=== PATIENT | female | born 1965 | race African-American/Black ===

== ENCOUNTER 2023-09-11 04:34 | Inpatient (IN) | payer OTHER ==
[~2023-09-11] VITALS: Ht 172.7 cm; Wt 97.8 kg
[2023-09-11 05:27] LABS: ABG BASE EXCESS 1.7 (-2.0-2.0); ABG HCO3 26.6 MMOL/L (22.0-26.0); ABG O2 SATURATION 90.5 % (95.0-99.0); ABG PARTIAL PRESSURE CO2 42.8 mmHg (35.0-45.0); ABG PARTIAL PRESSURE O2 60.3 mmHg (75.0-100.0); ABG STANDARD HCO3 25.8 MMOL/L. (22.0-26.0); ABG TOTAL CO2 27.9 MMOL/L (22.0-29.0); ABG pH (ARTERIAL) 7.411 UNITS (7.350-7.450)
[2023-09-11 05:29] LABS: BASO % 0.4 % (0.0-1.0); EOS # 0.1 10^3/uL (0.0-0.5); EOS % 0.9 % (0.0-3.0); HEMATOCRIT 34.5 % (36.0-47.0); HEMOGLOBIN 11.8 g/dl (12.0-15.5); LYMPH # 2.4 10^3/uL (1.5-5.0); LYMPH % 31.9 % (24.0-44.0); MEAN CORPUSCULAR HEMOGLOBIN 25.1 pg (27.0-33.0); MEAN CORPUSCULAR HGB CONC 34.2 g/dl (32.0-36.5); MEAN CORPUSCULAR VOLUME 73.4 fl (80.0-96.0); MONO # 0.9 10^3/uL (0.0-0.8); MONO % 11.6 % (2.0-8.0); NEUTROPHILS # 4.1 10^3/uL (1.5-8.5); NEUTROPHILS % 54.7 % (36.0-66.0); PLATELET COUNT, AUTOMATED 254 10^3/uL (150-450); WHITE BLOOD COUNT 7.5 10^3/uL (4.0-10.0)
[2023-09-11 05:52] LABS: ALBUMIN 3.2 G/DL (3.2-5.2); ALKALINE PHOSPHATASE 119 U/L (46-116); ALT/SGPT 25 U/L (7.0-40); AST/SGOT 50 U/L (<34); BILIRUBIN,DIRECT 0.1 MG/DL (<0.4); BILIRUBIN,TOTAL 0.4 MG/DL (0.3-1.2); BLOOD UREA NITROGEN 9 MG/DL (9-23); CALCIUM LEVEL 8.1 MG/DL (8.5-10.1); CARBON DIOXIDE LEVEL 24 MMOL/L (20-31); CHLORIDE LEVEL 101 MMOL/L (98-107); CREATININE FOR GFR 0.62 MG/DL (0.55-1.30); GLOMERULAR FILTRATION RATE > 60.0 (>51); GLUCOSE, FASTING 392 MG/DL (60-100); POTASSIUM SERUM 4.8 MMOL/L (3.5-5.1); SODIUM LEVEL 133 MMOL/L (136-145); TOTAL PROTEIN 7.4 G/DL (5.7-8.2)
[2023-09-11] MEDS: IPRATROPIUM 0.5MG/ALBUTEROL 2.5MG INH SOL UD 3ML (DUONEB) NEB PRN (05:52)
[2023-09-11] MEDS: LevoFLOXacin IV 750 MG in IV 1 EA IV ONE (06:43)
[2023-09-11 08:00] VITALS: O2SAT 93
[2023-09-11] MEDS: IPRATROPIUM 0.02% SOLN 0.5MG 2.5ML NEB INH SCH (08:03)
[2023-09-11] MEDS: LEVALBUTEROL 1.25MG 0.5ML CONCENTRATE NEB INH SCH (08:04)
[2023-09-11] MEDS: FUROSEMIDE 40MG/4ML VIAL IV ONE (08:30)
[2023-09-11] MEDS: guaiFENesin ER TABLET 600 MG TAB PO SCH (08:45)
[2023-09-11] MEDS: methylPREDNISolone 125MG 2ML VIAL IV SCH (08:48)
[2023-09-11] MEDS ORDERED: DEXTROSE 50% 50ML SYRINGE IV PRN (09:10)
[2023-09-11] MEDS ORDERED: GLUCOSE 4GM CHEW TABLET PO PRN (09:10)
[2023-09-11] MEDS ORDERED: GLUCAGON INJ 1MG VIAL SC PRN (09:10)
[2023-09-11] MEDS ORDERED: SPIR-10 PO (09:37)
[2023-09-11] MEDS ORDERED: HYDR-3363 PO (09:37)
[2023-09-11] MEDS ORDERED: FOLI1TAB11 PO (09:37)
[2023-09-11] MEDS ORDERED: LEVOTAB10 PO (09:37)
[2023-09-11] MEDS ORDERED: OXYC-517 PO (09:37)
[2023-09-11] MEDS ORDERED: CARV25TA PO (09:37)
[2023-09-11] MEDS ORDERED: VARE1TAB2 PO (09:37)
[2023-09-11] MEDS ORDERED: TIZA2CAP PO (09:37)
[2023-09-11] MEDS ORDERED: NYST1POW9 TOP (09:37)
[2023-09-11] MEDS ORDERED: HYDR200T46 PO (09:37)
[2023-09-11] MEDS ORDERED: MONT10TA97 PO (09:37)
[2023-09-11] MEDS ORDERED: SIMV10TA21 PO (09:37)
[2023-09-11] MEDS ORDERED: PREG150C2 PO (09:37)
[2023-09-11] MEDS ORDERED: TRAZ-257 PO (09:37)
[2023-09-11] MEDS ORDERED: ESOM40CA35 PO (09:37)
[2023-09-11] MEDS ORDERED: AZAT50TA37 PO (09:37)
[2023-09-11] MEDS ORDERED: CYPR4TA PO (09:37)
[2023-09-11] MEDS ORDERED: FURO20TA2 PO (09:37)
[2023-09-11] MEDS ORDERED: IPRA6SP NARES (09:37)
[2023-09-11] MEDS ORDERED: SUMA50TA2 PO (09:37)
[2023-09-11] MEDS ORDERED: NIFE-3 PO (09:37)
[2023-09-11 10:07] VITALS: BP 144/83; TEMP 97.7; O2SAT 91
[2023-09-11] MEDS: INSULIN LISPRO (NovoLOG) PER UNIT SC ONE (10:38)
[2023-09-11] MEDS ORDERED: FERR325T3 PO (11:30)
[2023-09-11] MEDS ORDERED: ESTR62CR PV (11:30)
[2023-09-11] MEDS ORDERED: IPRA0.00 INH (11:30)
[2023-09-11] MEDS ORDERED: INSULANT SQ (11:30)
[2023-09-11] MEDS ORDERED: BUPR150T12 PO (11:30)
[2023-09-11] MEDS ORDERED: FIAS100I2 SQ (11:30)
[2023-09-11] MEDS ORDERED: BREO1INH INH (11:30)
[2023-09-11] MEDS ORDERED: FLUT1BLS8 INH (11:30)
[2023-09-11] MEDS ORDERED: ALBU8.5H INH (11:30)
[2023-09-11] MEDS: INSULIN LISPRO (NovoLOG) PER UNIT SC SCH ×3 (12:44→20:39)
[2023-09-11] MEDS ORDERED: VALA1TAB5 PO (14:25)
[2023-09-11] MEDS ORDERED: HOME MED LIST COMPLETE! XX SCH (14:30)
[2023-09-11 14:34] VITALS: BP 125/75; TEMP 97.5; O2SAT 94
[2023-09-11] MEDS: SIMVASTATIN 10 MG TAB PO SCH (15:16)
[2023-09-11] MEDS: traMADol 50 MG TAB PO ONE (16:48)
[2023-09-11] MEDS: ENOXAPARIN 40MG/0.4ML SYRINGE (J1650 PER 10MG) SC ONE (17:48)
[2023-09-11 17:59] VITALS: BP 154/94
[2023-09-11] MEDS: DICLOFENAC EPOLAMINE 1.3% PATCH TOP SCH (18:00)
[2023-09-11] MEDS: ACETAMINOPHEN 500 MG TAB PO SCH (18:05)
[2023-09-11] MEDS: FUROSEMIDE 40MG/4ML VIAL IV SCH (18:12)
[2023-09-11 20:03] VITALS: BP 140/83; TEMP 97.9; O2SAT 96
[2023-09-11] MEDS: LEVEMIR (INSULIN DETEMIR) 1 UNITS/0.01ML SC SCH (20:39)
[2023-09-11] MEDS: VARENICLINE 1MG TABLET PO SCH (20:40)
[2023-09-11] MEDS: RAMELTEON 8 MG TAB (ROZEREM) PO PRN (22:28)
[2023-09-11] MEDS: traMADol 50 MG TAB PO PRN (22:29)
[2023-09-11 23:57] VITALS: BP 132/82
[2023-09-12 06:13] LABS: BASO % 0.2 % (0.0-1.0); HEMATOCRIT 35.3 % (36.0-47.0); HEMOGLOBIN 12.2 g/dl (12.0-15.5); LYMPH # 1.1 10^3/uL (1.5-5.0); LYMPH % 16.5 % (24.0-44.0); MEAN CORPUSCULAR HGB CONC 34.6 g/dl (32.0-36.5); MEAN CORPUSCULAR VOLUME 72.3 fl (80.0-96.0); MONO # 0.1 10^3/uL (0.0-0.8); MONO % 1.8 % (2.0-8.0); NEUTROPHILS # 5.3 10^3/uL (1.5-8.5); NEUTROPHILS % 80.7 % (36.0-66.0); PLATELET COUNT, AUTOMATED 249 10^3/uL (150-450); RED BLOOD COUNT 4.88 10^6/uL (4.00-5.40); WHITE BLOOD COUNT 6.5 10^3/uL (4.0-10.0)
[2023-09-12] MEDS: LevoFLOXacin 750 MG TABLET PO SCH (06:40)
[2023-09-12 06:42] LABS: BLOOD UREA NITROGEN 18 MG/DL (9-23); CALCIUM LEVEL 8.6 MG/DL (8.5-10.1); CARBON DIOXIDE LEVEL 30 MMOL/L (20-31); CHLORIDE LEVEL 97 MMOL/L (98-107); GLOMERULAR FILTRATION RATE > 60.0 (>51); GLUCOSE, FASTING 327 MG/DL (60-100); POTASSIUM SERUM 3.9 MMOL/L (3.5-5.1); SODIUM LEVEL 134 MMOL/L (136-145)
[2023-09-12 07:12] VITALS: BP 151/95; TEMP 97.7; O2SAT 95
[2023-09-12] MEDS: FOLIC ACID 1MG TAB PO SCH (08:03)
[2023-09-12] MEDS: OMEPRAZOLE 20MG CAP PO ONE (08:03)
[2023-09-12] MEDS: MONTELUKAST 10 MG TAB PO SCH (08:04)
[2023-09-12] MEDS ORDERED: HYDROXYCHLOROQUINE 200 MG TAB PO SCH (09:00)
[2023-09-12 10:05] LABS: ERYTHROCYTE SEDIMENTATION RATE 53 mm/hr (0-30)
[2023-09-12 10:14] LABS: PROCALCITONIN 0.38 ng/ml
[2023-09-12] MEDS: LEVEMIR (INSULIN DETEMIR) 1 UNITS/0.01ML SC ONE (10:26)
[2023-09-12] MEDS: INSULIN LISPRO (NovoLOG) PER UNIT SC SCH (12:17)
[2023-09-12 14:15] VITALS: BP 116/71; TEMP 97.3; O2SAT 97
[2023-09-12] MEDS: methylPREDNISolone 40MG 1ML VIAL IV SCH (16:29)
[2023-09-12] MEDS: ENOXAPARIN 40MG/0.4ML SYRINGE (J1650 PER 10MG) SC SCH (20:26)
[2023-09-12 20:34] VITALS: BP 142/77; TEMP 97.3; O2SAT 93
[2023-09-12] MEDS: PREGABALIN 75 MG CAP(LYRICA) PO SCH (22:29)
[2023-09-12] MEDS: oxyCODONE 5MG TAB PO PRN (22:30)
[2023-09-13 06:00] VITALS: BP 134/77; TEMP 97.5; O2SAT 91
[2023-09-13] MEDS: LEVEMIR (INSULIN DETEMIR) 1 UNITS/0.01ML SC ONE (06:33)
[2023-09-13 06:37] LABS: HEMATOCRIT 34.1 % (36.0-47.0); HEMOGLOBIN 11.7 g/dl (12.0-15.5); LYMPH # 0.8 10^3/uL (1.5-5.0); LYMPH % 6.8 % (24.0-44.0); MEAN CORPUSCULAR HEMOGLOBIN 24.9 pg (27.0-33.0); MEAN CORPUSCULAR HGB CONC 34.3 g/dl (32.0-36.5); MEAN CORPUSCULAR VOLUME 72.6 fl (80.0-96.0); MONO # 0.3 10^3/uL (0.0-0.8); MONO % 2.1 % (2.0-8.0); NEUTROPHILS # 11.2 10^3/uL (1.5-8.5); NEUTROPHILS % 90.5 % (36.0-66.0); PLATELET COUNT, AUTOMATED 250 10^3/uL (150-450); WHITE BLOOD COUNT 12.4 10^3/uL (4.0-10.0)
[2023-09-13 07:00] LABS: C REACTIVE PROTEIN QUANTITATIV 0.5 MG/DL (<1.0)
[2023-09-13 07:04] LABS: BLOOD UREA NITROGEN 31 MG/DL (9-23); CALCIUM LEVEL 8.4 MG/DL (8.5-10.1); CARBON DIOXIDE LEVEL 28 MMOL/L (20-31); CHLORIDE LEVEL 101 MMOL/L (98-107); CREATININE FOR GFR 0.85 MG/DL (0.55-1.30); GLOMERULAR FILTRATION RATE > 60.0 (>51); GLUCOSE, FASTING 283 MG/DL (60-100); POTASSIUM SERUM 3.8 MMOL/L (3.5-5.1); SODIUM LEVEL 135 MMOL/L (136-145)
[2023-09-13 07:07] LABS: ERYTHROCYTE SEDIMENTATION RATE 28 mm/hr (0-30)
[2023-09-13 07:09] LABS: PROCALCITONIN 0.31 ng/ml
[2023-09-13 07:10] VITALS: O2SAT 96
[2023-09-13] MEDS: INSULIN LISPRO (NovoLOG) PER UNIT SC SCH ×2 (08:07→12:26)
[2023-09-13] MEDS: OMEPRAZOLE 20MG CAP PO SCH (08:08)
[2023-09-13] MEDS: predniSONE 20 MG TAB PO SCH (08:10)
[2023-09-13] MEDS ORDERED: LEVEMIR (INSULIN DETEMIR) 1 UNITS/0.01ML SC SCH (09:00)
[2023-09-13] MEDS ORDERED: PRED20TA PO (10:26)
[2023-09-13] MEDS ORDERED: PRED10TA2 PO (10:26)
[2023-09-13] MEDS ORDERED: LEVO1TAB40 PO (10:31)
[2023-09-13] MEDS ORDERED: CHLORASEPTIC SPRAY MT PRN (10:50)
[2023-09-13] MEDS: LEVEMIR (INSULIN DETEMIR) 1 UNITS/0.01ML SC SCH (20:36)
[2023-09-13] MEDS: CEPACOL LOZENGE PO PRN (20:37)
[2023-09-13] MEDS ORDERED: INSULIN LISPRO (NovoLOG) PER UNIT SC SCH (21:00)
[2023-09-13 21:02] VITALS: BP 109/74; TEMP 97.5; O2SAT 94
[2023-09-14 05:44] LABS: BASO % 0.1 % (0.0-1.0); EOS % 0.2 % (0.0-3.0); HEMATOCRIT 35.3 % (36.0-47.0); HEMOGLOBIN 11.6 g/dl (12.0-15.5); LYMPH # 0.8 10^3/uL (1.5-5.0); LYMPH % 7.1 % (24.0-44.0); MEAN CORPUSCULAR HEMOGLOBIN 24.8 pg (27.0-33.0); MEAN CORPUSCULAR HGB CONC 32.9 g/dl (32.0-36.5); MEAN CORPUSCULAR VOLUME 75.4 fl (80.0-96.0); MONO # 0.3 10^3/uL (0.0-0.8); MONO % 2.3 % (2.0-8.0); NEUTROPHILS # 10.4 10^3/uL (1.5-8.5); NEUTROPHILS % 89.1 % (36.0-66.0); PLATELET COUNT, AUTOMATED 247 10^3/uL (150-450); RED BLOOD COUNT 4.68 10^6/uL (4.00-5.40); WHITE BLOOD COUNT 11.7 10^3/uL (4.0-10.0)
[2023-09-14 06:00] VITALS: BP 138/85; TEMP 97.5; O2SAT 97
[2023-09-14 06:19] LABS: BLOOD UREA NITROGEN 30 MG/DL (9-23); CALCIUM LEVEL 8.2 MG/DL (8.5-10.1); CARBON DIOXIDE LEVEL 26 MMOL/L (20-31); CHLORIDE LEVEL 101 MMOL/L (98-107); GLOMERULAR FILTRATION RATE > 60.0 (>51); GLUCOSE, FASTING 436 MG/DL (60-100); POTASSIUM SERUM 3.9 MMOL/L (3.5-5.1); SODIUM LEVEL 134 MMOL/L (136-145)
[2023-09-14] MEDS: INSULIN LISPRO (NovoLOG) PER UNIT SC STA ×2 (08:07→10:51)
[2023-09-14] MEDS: LEVEMIR (INSULIN DETEMIR) 1 UNITS/0.01ML SC SCH ×2 (10:51→20:23)
[2023-09-14] MEDS ORDERED: VARIBAR PUDDING 40% w/v 230ML TUBE As Ordered ONE (12:16)
[2023-09-14] MEDS ORDERED: VARIBAR NECTAR 40% w/v 240ML SUSP BTL As Ordered ONE (12:16)
[2023-09-14] MEDS ORDERED: BARIUM SULFATE 700 MG TABLET (E-Z-DISK) As Ordered ONE (12:16)
[2023-09-14] MEDS ORDERED: E-Z-PAQUE 96% w/w SUSP 176GM BTL As Ordered ONE (12:16)
[2023-09-14 12:41] LABS: BLOOD UREA NITROGEN 30 MG/DL (9-23); CALCIUM LEVEL 8.3 MG/DL (8.5-10.1); CARBON DIOXIDE LEVEL 26 MMOL/L (20-31); CHLORIDE LEVEL 104 MMOL/L (98-107); CREATININE FOR GFR 0.78 MG/DL (0.55-1.30); GLOMERULAR FILTRATION RATE > 60.0 (>51); GLUCOSE, FASTING 335 MG/DL (60-100); POTASSIUM SERUM 3.7 MMOL/L (3.5-5.1); SODIUM LEVEL 137 MMOL/L (136-145)
[2023-09-14] MEDS: SPIRONOLACTONE 25 MG TAB PO SCH (13:09)
[2023-09-14 14:13] VITALS: BP 108/50; TEMP 97.3; O2SAT 96
[2023-09-14] MEDS: LEVEMIR (INSULIN DETEMIR) 1 UNITS/0.01ML SC ONE (16:10)
[2023-09-14] MEDS: INSULIN LISPRO (NovoLOG) PER UNIT SC SCH ×3 (17:10→20:23)
[2023-09-14 18:39] LABS: BLOOD UREA NITROGEN 27 MG/DL (9-23); CALCIUM LEVEL 8.4 MG/DL (8.5-10.1); CARBON DIOXIDE LEVEL 25 MMOL/L (20-31); CHLORIDE LEVEL 103 MMOL/L (98-107); CREATININE FOR GFR 0.73 MG/DL (0.55-1.30); GLOMERULAR FILTRATION RATE > 60.0 (>51); GLUCOSE, FASTING 345 MG/DL (60-100); POTASSIUM SERUM 3.6 MMOL/L (3.5-5.1); SODIUM LEVEL 135 MMOL/L (136-145)
[2023-09-14 19:43] VITALS: BP 132/73; TEMP 97.9; O2SAT 94
[2023-09-15 00:15] VITALS: O2SAT 97
[2023-09-15 05:02] VITALS: BP 152/89; TEMP 97.7; O2SAT 96
[2023-09-15 06:05] LABS: BASO % 0.1 % (0.0-1.0); HEMATOCRIT 34.3 % (36.0-47.0); HEMOGLOBIN 11.7 g/dl (12.0-15.5); LYMPH # 4.2 10^3/uL (1.5-5.0); LYMPH % 28.4 % (24.0-44.0); MEAN CORPUSCULAR HEMOGLOBIN 25.2 pg (27.0-33.0); MEAN CORPUSCULAR HGB CONC 34.1 g/dl (32.0-36.5); MEAN CORPUSCULAR VOLUME 73.9 fl (80.0-96.0); MONO % 6.6 % (2.0-8.0); NEUTROPHILS # 9.5 10^3/uL (1.5-8.5); NEUTROPHILS % 63.6 % (36.0-66.0); PLATELET COUNT, AUTOMATED 268 10^3/uL (150-450); RED BLOOD COUNT 4.64 10^6/uL (4.00-5.40); WHITE BLOOD COUNT 14.9 10^3/uL (4.0-10.0)
[2023-09-15 06:27] LABS: BLOOD UREA NITROGEN 24 MG/DL (9-23); CALCIUM LEVEL 8.4 MG/DL (8.5-10.1); CARBON DIOXIDE LEVEL 31 MMOL/L (20-31); CHLORIDE LEVEL 104 MMOL/L (98-107); CREATININE FOR GFR 0.73 MG/DL (0.55-1.30); GLOMERULAR FILTRATION RATE > 60.0 (>51); GLUCOSE, FASTING 60 MG/DL (60-100); SODIUM LEVEL 139 MMOL/L (136-145)
[2023-09-15 07:30] VITALS: BP 149/87; O2SAT 98
[2023-09-15] MEDS: INSULIN LISPRO (NovoLOG) PER UNIT SC SCH (07:30)
[2023-09-15] MEDS: LEVEMIR (INSULIN DETEMIR) 1 UNITS/0.01ML SC SCH (08:35)
[2023-09-15] MEDS: predniSONE 20 MG TAB PO SCH (08:52)
[2023-09-15] MEDS ORDERED: LEVEMIR (INSULIN DETEMIR) 1 UNITS/0.01ML SC SCH (09:00)
[2023-09-15] MEDS: POTASSIUM CHLORIDE 10MEQ SR TABLET PO SCH (11:03)
[2023-09-15 11:50] VITALS: BP 156/92; TEMP 97.3
[2023-09-15] MEDS: lisinopriL 5 MG TAB PO SCH (12:15)
[2023-09-15] MEDS: CARVedilol 12.5 MG TAB PO SCH (12:16)
[2023-09-15 15:15] VITALS: BP 115/66; TEMP 97.3
[2023-09-15] MEDS ORDERED: SODIUM CHLORIDE NASAL 0.65% SPRAY BTL (OCEAN) PRN (15:25)
[2023-09-15 21:21] VITALS: BP 119/67; TEMP 97.2; O2SAT 97
[2023-09-16 03:51] VITALS: O2SAT 97
[2023-09-16 06:00] VITALS: BP 126/69; TEMP 96.6; O2SAT 97
[2023-09-16 06:00] LABS: BASO % 0.1 % (0.0-1.0); EOS % 0.2 % (0.0-3.0); HEMATOCRIT 30.4 % (36.0-47.0); HEMOGLOBIN 10.7 g/dl (12.0-15.5); LYMPH # 3.8 10^3/uL (1.5-5.0); LYMPH % 30.5 % (24.0-44.0); MEAN CORPUSCULAR HEMOGLOBIN 25.6 pg (27.0-33.0); MEAN CORPUSCULAR HGB CONC 35.2 g/dl (32.0-36.5); MEAN CORPUSCULAR VOLUME 72.7 fl (80.0-96.0); MONO # 0.7 10^3/uL (0.0-0.8); MONO % 5.7 % (2.0-8.0); NEUTROPHILS # 7.7 10^3/uL (1.5-8.5); NEUTROPHILS % 61.2 % (36.0-66.0); PLATELET COUNT, AUTOMATED 240 10^3/uL (150-450); RED BLOOD COUNT 4.18 10^6/uL (4.00-5.40); WHITE BLOOD COUNT 12.5 10^3/uL (4.0-10.0)
[2023-09-16 06:32] LABS: BLOOD UREA NITROGEN 23 MG/DL (9-23); CALCIUM LEVEL 8.2 MG/DL (8.5-10.1); CARBON DIOXIDE LEVEL 29 MMOL/L (20-31); CHLORIDE LEVEL 105 MMOL/L (98-107); GLOMERULAR FILTRATION RATE > 60.0 (>51); GLUCOSE, FASTING 126 MG/DL (60-100); SODIUM LEVEL 136 MMOL/L (136-145)
[2023-09-16] MEDS: INSULIN LISPRO (NovoLOG) PER UNIT SC SCH (07:30)
[2023-09-16] MEDS: metFORMIN (GLUCOPHAGE) 500MG TAB PO SCH (08:11)
[2023-09-16 08:15] VITALS: BP 127/98
[2023-09-16] MEDS ORDERED: INSU100V3 SQ (11:13)
[2023-09-16] MEDS ORDERED: METF500T13 PO (11:13)
[2023-09-16] MEDS ORDERED: FARX1TAB3 PO (11:13)
[2023-09-16] MEDS ORDERED: LISI5TAB11 PO (13:16)
[2023-09-16] MEDS ORDERED: INSULIN LISPRO (NovoLOG) PER UNIT SC SCH (21:00)
[2023-09-16] MEDS ORDERED: LEVEMIR (INSULIN DETEMIR) 1 UNITS/0.01ML SC SCH (21:00)
== END 2023-09-16 13:30 | disposition home health service (06) | DRG 291 ==
LOC: M ED 04:34 → EDBD 04:34 → M ED INP 07:11 → M MS5PR 09:50
PROVIDERS: ADMIT General Practice; ATTEND Internal Medicine
PROC: B246ZZZ Ultrasonography of Right and Left Heart (ICD-10-PCS; principal; 2023-09-12)
DX: I11.0 Hypertensive heart disease with heart failure (principal); I50.33 Acute on chronic diastolic (congestive) heart failure; J96.01 Acute respiratory failure with hypoxia; J44.1 Chronic obstructive pulmonary disease with (acute) exacerbation; J45.901 Unspecified asthma with (acute) exacerbation; E87.20 Acidosis, unspecified; I27.20 Pulmonary hypertension, unspecified; E66.9 Obesity, unspecified; K21.9 Gastro-esophageal reflux disease without esophagitis; E11.65 Type 2 diabetes mellitus with hyperglycemia; I16.0 Hypertensive urgency; E78.00 Pure hypercholesterolemia, unspecified; G47.33 Obstructive sleep apnea (adult) (pediatric); G47.00 Insomnia, unspecified; M54.9 Dorsalgia, unspecified; G89.29 Other chronic pain; Z90.79 Acquired absence of other genital organ(s); Z87.891 Personal history of nicotine dependence; Z68.34 Body mass index [BMI] 34.0-34.9, adult; Z88.0 Allergy status to penicillin; Z88.2 Allergy status to sulfonamides; Z88.5 Allergy status to narcotic agent; Z91.048 Other nonmedicinal substance allergy status; Z79.899 Other long term (current) drug therapy; Z20.822 Contact with and (suspected) exposure to COVID-19; Z79.891 Long term (current) use of opiate analgesic; M25.551 Pain in right hip; M32.9 Systemic lupus erythematosus, unspecified; T38.0X5A Adverse effect of glucocorticoids and synthetic analogues, initial encounter

== ENCOUNTER → 2023-12-31 | Outpatient (CLI) | payer MEDICARE, OTHER ==
[~2023-12-31] MED LIST: ALBU8.5H INH; AZAT50TA37 PO; BREO1INH INH; BUPR150T12 PO; CARV25TA PO; CYPR4TA PO; ESOM40CA35 PO; ESTR62CR PV; FARX1TAB3 PO; FERR325T3 PO; FIAS100I2 SQ; FLUT1BLS8 INH; FOLI1TAB11 PO; FURO20TA2 PO; HYDR-3363 PO; HYDR200T46 PO; INSU100V3 SQ; INSULANT SQ; IPRA0.00 INH; IPRA6SP NARES; LEVO1TAB40 PO; LEVOTAB10 PO; LISI5TAB11 PO; METF500T13 PO; MONT10TA97 PO; NIFE-3 PO; NYST1POW9 TOP; OXYC-517 PO; PRED10TA2 PO; PRED20TA PO; PREG150C2 PO; SIMV10TA21 PO; SPIR-10 PO; SUMA50TA2 PO; TIZA2CAP PO; TRAZ-257 PO; VALA1TAB5 PO; VARE1TAB2 PO
[2023-12-31 12:22] LABS: BASO % 0.5 % (0.0-1.0); EOS # 0.1 10^3/uL (0.0-0.5); EOS % 1.2 % (0.0-3.0); HEMATOCRIT 37.4 % (36.0-47.0); HEMOGLOBIN 12.6 g/dl (12.0-15.5); LYMPH # 2.2 10^3/uL (1.5-5.0); LYMPH % 36.4 % (24.0-44.0); MEAN CORPUSCULAR HEMOGLOBIN 25.1 pg (27.0-33.0); MEAN CORPUSCULAR HGB CONC 33.7 g/dl (32.0-36.5); MEAN CORPUSCULAR VOLUME 74.7 fl (80.0-96.0); MONO # 0.6 10^3/uL (0.0-0.8); MONO % 9.8 % (2.0-8.0); NEUTROPHILS # 3.1 10^3/uL (1.5-8.5); NEUTROPHILS % 51.8 % (36.0-66.0); PLATELET COUNT, AUTOMATED 214 10^3/uL (150-450); RED BLOOD COUNT 5.01 10^6/uL (4.00-5.40)
[2023-12-31 12:35] LABS: HEMOGLOBIN A1c 6.9 % (4.0-6.0)
[2023-12-31 12:48] LABS: ALBUMIN 3.9 G/DL (3.2-5.2); ALKALINE PHOSPHATASE 104 U/L (46-116); ALT/SGPT 28 U/L (7.0-40); AST/SGOT 21 U/L (<34); BILIRUBIN,TOTAL 0.3 MG/DL (0.3-1.2); BLOOD UREA NITROGEN 10 MG/DL (9-23); CALCIUM LEVEL 9.7 MG/DL (8.5-10.1); CARBON DIOXIDE LEVEL 26 MMOL/L (20-31); CHLORIDE LEVEL 103 MMOL/L (98-107); CHOLESTEROL LEVEL 129 MG/DL (<200); CHOLESTEROL RISK RATIO 2.91 (<5); GLOMERULAR FILTRATION RATE > 60.0 (>51); GLUCOSE, FASTING 56 MG/DL (60-100); HDL CHOLESTEROL 44.3 MG/DL (>40); LDL CHOLESTEROL 64.9 MG/DL (<100); NON-HDL-C 84.7 MG/DL; POTASSIUM SERUM 3.3 MMOL/L (3.5-5.1); SODIUM LEVEL 138 MMOL/L (136-145); TOTAL PROTEIN 7.8 G/DL (5.7-8.2); TRIGLYCERIDES LEVEL 99 MG/DL (<150)
[2023-12-31 12:49] LABS: THYROID STIMULATING HORMONE 1.752 uIU/ML (0.55-4.78)
[2023-12-31 12:50] LABS: FREE T4 1.31 NG/DL (0.89-1.76)
== END ==
LOC: M LAB 11:17
DX: I11.0 Hypertensive heart disease with heart failure (principal); M32.19 Other organ or system involvement in systemic lupus erythematosus; J84.89 Other specified interstitial pulmonary diseases; Z79.899 Other long term (current) drug therapy

== ENCOUNTER → 2023-12-31 | Outpatient (CLI) | payer MEDICARE, OTHER ==
[2023-12-31 12:22] LABS: BASO % 0.5 % (0.0-1.0); EOS # 0.1 10^3/uL (0.0-0.5); EOS % 1.1 % (0.0-3.0); HEMATOCRIT 38.1 % (36.0-47.0); HEMOGLOBIN 12.9 g/dl (12.0-15.5); LYMPH # 2.2 10^3/uL (1.5-5.0); LYMPH % 35.3 % (24.0-44.0); MEAN CORPUSCULAR HEMOGLOBIN 25.2 pg (27.0-33.0); MEAN CORPUSCULAR HGB CONC 33.9 g/dl (32.0-36.5); MEAN CORPUSCULAR VOLUME 74.6 fl (80.0-96.0); MONO # 0.7 10^3/uL (0.0-0.8); MONO % 10.8 % (2.0-8.0); NEUTROPHILS # 3.3 10^3/uL (1.5-8.5); NEUTROPHILS % 51.8 % (36.0-66.0); PLATELET COUNT, AUTOMATED 245 10^3/uL (150-450); RED BLOOD COUNT 5.11 10^6/uL (4.00-5.40); WHITE BLOOD COUNT 6.3 10^3/uL (4.0-10.0)
[2023-12-31 12:42] LABS: ERYTHROCYTE SEDIMENTATION RATE 32 mm/hr (0-30)
[2023-12-31 12:53] LABS: ALBUMIN 3.8 G/DL (3.2-5.2); ALKALINE PHOSPHATASE 104 U/L (46-116); ALT/SGPT 28 U/L (7.0-40); AST/SGOT 21 U/L (<34); BILIRUBIN,TOTAL 0.3 MG/DL (0.3-1.2); BLOOD UREA NITROGEN 10 MG/DL (9-23); CALCIUM LEVEL 9.7 MG/DL (8.5-10.1); CARBON DIOXIDE LEVEL 26 MMOL/L (20-31); CHLORIDE LEVEL 104 MMOL/L (98-107); CREATININE FOR GFR 1.01 MG/DL (0.55-1.30); GLOMERULAR FILTRATION RATE > 60.0 (>51); GLUCOSE, FASTING 57 MG/DL (60-100); POTASSIUM SERUM 3.3 MMOL/L (3.5-5.1); SODIUM LEVEL 138 MMOL/L (136-145); TOTAL PROTEIN 7.8 G/DL (5.7-8.2)
== END ==
LOC: M LAB 10:53
PROVIDERS: ATTEND Internal Medicine Rheumatology
DX: M32.19 Other organ or system involvement in systemic lupus erythematosus (principal); J84.89 Other specified interstitial pulmonary diseases; Z79.899 Other long term (current) drug therapy

== ENCOUNTER 2024-02-16 14:12 | Emergency (ER) | payer OTHER ==
[~2024-02-16] VITALS: Ht 152.4 cm; Wt 102.3 kg
[2024-02-16 16:22] LABS: BASO % 0.5 % (0.0-1.0); EOS % 0.5 % (0.0-3.0); HEMATOCRIT 37.4 % (36.0-47.0); HEMOGLOBIN 12.5 g/dl (12.0-15.5); LYMPH % 34.3 % (24.0-44.0); MEAN CORPUSCULAR HEMOGLOBIN 24.4 pg (27.0-33.0); MEAN CORPUSCULAR HGB CONC 33.4 g/dl (32.0-36.5); MEAN CORPUSCULAR VOLUME 72.9 fl (80.0-96.0); MONO # 0.6 10^3/uL (0.0-0.8); MONO % 10.9 % (2.0-8.0); NEUTROPHILS # 3.1 10^3/uL (1.5-8.5); NEUTROPHILS % 53.4 % (36.0-66.0); PLATELET COUNT, AUTOMATED 225 10^3/uL (150-450); RED BLOOD COUNT 5.13 10^6/uL (4.00-5.40); WHITE BLOOD COUNT 5.7 10^3/uL (4.0-10.0)
[2024-02-16 16:42] LABS: CK-MB VALUE MASS < 1.0 NG/ML (<3.6)
[2024-02-16 16:44] LABS: BLOOD UREA NITROGEN 12 MG/DL (9-23); CARBON DIOXIDE LEVEL 28 MMOL/L (20-31); CHLORIDE LEVEL 100 MMOL/L (98-107); CPK CREATINE PHOSPHOKINASE 122 U/L (34-145); CREATININE FOR GFR 1.26 MG/DL (0.55-1.30); GLOMERULAR FILTRATION RATE 56.1 (>51); GLUCOSE, FASTING 85 MG/DL (60-100); MB/CK RELATIVE INDEX 0.81 (< OR =4); POTASSIUM SERUM 3.2 MMOL/L (3.5-5.1); SODIUM LEVEL 135 MMOL/L (136-145)
[2024-02-16 16:46] LABS: THYROID STIMULATING HORMONE 1.093 uIU/ML (0.55-4.78)
[2024-02-16] MEDS ORDERED: ISOVUE-370 76% 100ML VIAL As Ordered ONE (18:20)
[2024-02-16 18:59] LABS: LIPASE 33 U/L (12-53)
[2024-02-16 19:01] LABS: ALKALINE PHOSPHATASE 96 U/L (46-116); ALT/SGPT 21 U/L (7.0-40); AST/SGOT 16 U/L (<34); BILIRUBIN,DIRECT 0.2 MG/DL (<0.4); BILIRUBIN,TOTAL 0.4 MG/DL (0.3-1.2); MAGNESIUM LEVEL 2.1 MG/DL (1.8-2.4); TOTAL PROTEIN 7.8 G/DL (5.7-8.2)
[2024-02-16 19:18] LABS: INR 1.2; PARTIAL THROMBOPLASTIN TIME 28.9 SECONDS (24.8-34.2); PROTHROMBIN TIME 14.8 SECONDS (12.5-14.5)
[2024-02-16 19:37] LABS: CK-MB VALUE MASS < 1.0 NG/ML (<3.6); CPK CREATINE PHOSPHOKINASE 161 U/L (34-145); MB/CK RELATIVE INDEX 0.62 (< OR =4)
[2024-02-16] MEDS ORDERED: DEPA1TAB3 PO (19:37)
[2024-02-16 19:49] VITALS: BP 138/87; TEMP 97.1; O2SAT 97
[2024-02-16 20:28] LABS: AMPHETAMINES LEVEL URINE NEGATIVE (NEGATIVE); BARBITURATES URINE NEGATIVE (NEGATIVE); BENZODIAZEPINES URINE NEGATIVE (NEGATIVE); COCAINE METABOLITE URINE NEGATIVE (NEGATIVE); METHADONE URINE NEGATIVE (NEGATIVE); OPIATES URINE NEGATIVE (NEGATIVE)
[2024-02-16 20:29] LABS: CANNABINOIDS URINE NEGATIVE (NEGATIVE); PHENCYCLIDINE URINE NEGATIVE (NEGATIVE)
== END 2024-02-16 19:52 | disposition home or self-care (01) ==
LOC: M ED 14:12
DX: R55 Syncope and collapse (principal); R56.9 Unspecified convulsions; R94.31 Abnormal electrocardiogram [ECG] [EKG]; E11.9 Type 2 diabetes mellitus without complications; J44.9 Chronic obstructive pulmonary disease, unspecified; J45.909 Unspecified asthma, uncomplicated; I10 Essential (primary) hypertension; Z87.891 Personal history of nicotine dependence; Z88.0 Allergy status to penicillin; Z88.2 Allergy status to sulfonamides; Z88.5 Allergy status to narcotic agent; Z79.51 Long term (current) use of inhaled steroids; Z79.4 Long term (current) use of insulin; Z79.84 Long term (current) use of oral hypoglycemic drugs; Z79.52 Long term (current) use of systemic steroids; Z79.899 Other long term (current) drug therapy
CPT/HCPCS: 36415; 70450; 71046; 71275; 74174; 80048; 80076; 80307; 81001; 82550; 82553; 83690; 83735; 83880; 84443; 84484; 85025; 85610; 85730; 87486; 87581; 87633; 87798; 93005; 99284; Q9967

== ENCOUNTER → 2024-09-13 | Outpatient (CLI) | payer OTHER ==
[~2024-09-13] MED LIST changes: -CYPR4TA PO; +CYPR4TAB36 PO; +DEPA1TAB3 PO; +NYST1POW3 TOP; -NYST1POW9 TOP
== END ==
LOC: M SOG 10:19
PROVIDERS: ATTEND Physician Assistant
DX: M25.552 Pain in left hip (principal); Z96.642 Presence of left artificial hip joint

== ENCOUNTER → 2025-02-18 | Outpatient (CLI) | payer MEDICARE, MEDICAID | LOC: M RAD 08:13 | PROVIDERS: ATTEND Family Medicine | DX: M54.12 Radiculopathy, cervical region (principal) ==

== ENCOUNTER 2025-03-19 16:57 | Emergency (ER) | payer MEDICARE, MEDICAID ==
[~2025-03-19] VITALS: Ht 149.9 cm; Wt 83.6 kg
[~2025-03-19 16:57] MED LIST changes: +FAMO1TAB11 PO; +FARX1TAB5 PO; +FURO40TA2 PO; +INSUH10VL SQ; +LANS30CA93 PO; +LORA-1041 PO; +METF-839 PO; +METH-1165 PO; +OXYC10TA12 PO; +STIO1AER; +SUMA100T2 PO; +TIRZ10PE; +TOPI-21 PO; +VITA1CAP25 PO; +YUPE175S; +ZOLP5TAB PO
[2025-03-19 17:06] VITALS: BP 123/83; TEMP 98.3; O2SAT 100
== END 2025-03-19 19:22 | disposition left against medical advice (07) ==
LOC: M ED 16:57 → EDBD 16:57 → M ED 19:22
DX: Z53.21 Procedure and treatment not carried out due to patient leaving prior to being seen by health care provider (principal)

== ENCOUNTER 2025-03-22 10:26 | Day surgery (SDC) | payer MEDICARE, MEDICAID ==
[~2025-03-22] VITALS: Ht 149.9 cm; Wt 83.5 kg
[2025-03-22] MEDS ORDERED: IPRATROPIUM 0.5 MG/ALBUTEROL 2.5 MG INH SOL UD 3 ML NEB STA (10:51)
[2025-03-22] MEDS ORDERED: LIDOCAINE 2% 100 MG/5 ML SDV (FOR ANES.) As Ordered ONE (11:18)
[2025-03-22 11:50] VITALS: TEMP 97.1
[2025-03-22 12:10] VITALS: BP 135/85; O2SAT 95
== END 2025-03-22 12:16 | disposition home or self-care (01) ==
LOC: M OPP 10:26
PROVIDERS: ATTEND Internal Medicine Gastroenterology
DX: K64.0 First degree hemorrhoids (principal); K55.20 Angiodysplasia of colon without hemorrhage; K57.30 Diverticulosis of large intestine without perforation or abscess without bleeding; Z86.0100 Personal history of colon polyps, unspecified; G47.30 Sleep apnea, unspecified; Z88.0 Allergy status to penicillin; Z88.1 Allergy status to other antibiotic agents; Z88.2 Allergy status to sulfonamides; Z88.5 Allergy status to narcotic agent; Z88.8 Allergy status to other drugs, medicaments and biological substances; Z91.040 Latex allergy status; Z91.048 Other nonmedicinal substance allergy status; J44.9 Chronic obstructive pulmonary disease, unspecified; F17.210 Nicotine dependence, cigarettes, uncomplicated

== ENCOUNTER 2025-03-28 10:11 | Inpatient (IN) | payer MEDICARE, MEDICAID ==
[~2025-03-28] VITALS: Ht 149.9 cm; Wt 86.6 kg
[~2025-03-28 10:11] MED LIST changes: -STIO1AER; +STIO1AER INH; -TIRZ10PE; +TIRZ10PE INJ; -YUPE175S; +YUPE175S NEB
[2025-03-28 11:16] LABS: BASO # 0.0 10^3/uL (0.0-0.2); BASO % 0.2 % (0.0-1.0); EOS # 0.0 10^3/uL (0.0-0.5); EOS % 0.1 % (0.0-3.0); LYMPH # 0.7 10^3/uL (1.5-5.0); LYMPH % 5.4 % (24.0-44.0); MONO # 0.7 10^3/uL (0.0-0.8); MONO % 5.0 % (2.0-8.0); NEUTROPHILS # 11.8 10^3/uL (1.5-8.5); NEUTROPHILS % 88.8 % (36.0-66.0); PLATELET COUNT, AUTOMATED 254 10^3/uL (150-450)
[2025-03-28] MEDS: ACETAMINOPHEN 500 MG TAB PO ONE (11:26)
[2025-03-28 11:29] LABS: ALT/SGPT 13.0 U/L (7.0-40); AST/SGOT 22.0 U/L (<34); CALCIUM LEVEL 9.6 MG/DL (8.3-10.6); CARBON DIOXIDE LEVEL 23.0 MMOL/L (20-31); CHLORIDE LEVEL 101.0 MMOL/L (98-107); CREATININE FOR GFR 0.87 MG/DL (0.55-1.30); GLOMERULAR FILTRATION RATE 75.8 (>45); POTASSIUM SERUM 3.8 MMOL/L (3.5-5.1); SODIUM LEVEL 137.0 MMOL/L (136-145)
[2025-03-28] MEDS: IPRATROPIUM 0.5 MG/ALBUTEROL 2.5 MG INH SOL UD 3 ML NEB PRN (11:49)
[2025-03-28 11:52] VITALS: O2SAT 99
[2025-03-28] MEDS: LevoFLOXacin IV 750 MG in IV 1 EA IV ONE (12:51)
[2025-03-28] MEDS ORDERED: FIAS100I2 SUBQ (15:16)
[2025-03-28] MEDS ORDERED: INSULANT SUBQ (15:16)
[2025-03-28] MEDS ORDERED: TRIA0.022 TOP (15:16)
[2025-03-28] MEDS ORDERED: ONDA-284 PO (15:16)
[2025-03-28] MEDS ORDERED: PRED5TA PO (15:16)
[2025-03-28] MEDS ORDERED: HOME MED LIST COMPLETE! XX SCH (15:20)
[2025-03-28] MEDS ORDERED: MOM 30 ML SUSPENSION UDC PO PRN (16:25)
[2025-03-28] MEDS ORDERED: ACETAMINOPHEN 325 MG TAB PO PRN (16:25)
[2025-03-28] MEDS ORDERED: DEXTROSE 50% 50 ML SYRINGE IV PRN (16:45)
[2025-03-28] MEDS ORDERED: GLUCOSE 4 GM CHEW PO PRN (16:45)
[2025-03-28] MEDS ORDERED: GLUCAGON INJ 1 MG VIAL SC PRN (16:45)
[2025-03-28] MEDS ORDERED: DOXYCYCLINE HYCLATE 100 MG in DEXTROSE 5% (D5W) MINI-BAG PLU 100 ML IV SCH (16:45)
[2025-03-28] MEDS ORDERED: PILL CUTTER 1 EACH XX PRN (17:05)
[2025-03-28 17:22] VITALS: BP 152/86; TEMP 98.4; O2SAT 100
[2025-03-28] MEDS: INSULIN LISPRO (NovoLOG) PER UNIT SC SCH ×2 (18:02→21:16)
[2025-03-28] MEDS: BUDESONIDE 0.5 MG/2 ML INHALATION SUSPENSION NEB SCH (19:24)
[2025-03-28] MEDS: ALBUTEROL SULFATE 2.5 MG/0.5 ML INH CONCENTRATE NEB SOLN NEB SCH (19:24)
[2025-03-28] MEDS: GLYCOPYRROLATE INJ 0.2 MG/ML 2 ML VIAL NEB SCH (19:25)
[2025-03-28 20:22] VITALS: BP 152/88; TEMP 99.4; O2SAT 100
[2025-03-28] MEDS: INSULIN GLARGINE-YFGN 1 UNITS/0.01 ML SC SCH (21:16)
[2025-03-28] MEDS: buPROPion **XL** 150 MG TABLET PO SCH (21:18)
[2025-03-28] MEDS: DOCUSATE SODIUM 100 MG CAPSULE PO SCH (21:18)
[2025-03-28] MEDS: DOXYCYCLINE HYCLATE 100 MG TABLET PO SCH (21:18)
[2025-03-28] MEDS: cefTRIAXone SOD 2 GM in DEXTROSE 5% (D5W) ADV/MINI-BAG 50 ML IV SCH (21:18)
[2025-03-28] MEDS: FAMOTIDINE 20 MG TAB PO SCH (21:18)
[2025-03-28] MEDS: traZODone 100 MG TAB PO SCH (21:19)
[2025-03-28] MEDS: SIMVASTATIN 10 MG TAB PO SCH (21:19)
[2025-03-28] MEDS: HYDROXYCHLOROQUINE 200 MG TAB PO SCH (23:53)
[2025-03-29 03:55] VITALS: BP 140/74; TEMP 97.9; O2SAT 100
[2025-03-29 06:37] LABS: BASO # 0.0 10^3/uL (0.0-0.2); BASO % 0.1 % (0.0-1.0); EOS # 0.0 10^3/uL (0.0-0.5); EOS % 0.0 % (0.0-3.0); LYMPH # 0.7 10^3/uL (1.5-5.0); LYMPH % 7.3 % (24.0-44.0); MONO # 0.2 10^3/uL (0.0-0.8); MONO % 2.2 % (2.0-8.0); NEUTROPHILS # 8.0 10^3/uL (1.5-8.5); NEUTROPHILS % 90.1 % (36.0-66.0); PLATELET COUNT, AUTOMATED 236 10^3/uL (150-450)
[2025-03-29 07:39] LABS: CALCIUM LEVEL 9.6 MG/DL (8.3-10.6); CARBON DIOXIDE LEVEL 22.0 MMOL/L (20-31); CHLORIDE LEVEL 106.0 MMOL/L (98-107); CREATININE FOR GFR 0.86 MG/DL (0.55-1.30); GLOMERULAR FILTRATION RATE 76.8 (>45); POTASSIUM SERUM 4.3 MMOL/L (3.5-5.1); SODIUM LEVEL 139.0 MMOL/L (136-145)
[2025-03-29] MEDS: FUROSEMIDE 40 MG/4 ML VIAL IV SCH (08:53)
[2025-03-29 08:54] VITALS: BP 149/89
[2025-03-29] MEDS: SPIRONOLACTONE 25 MG TAB PO SCH (08:54)
[2025-03-29] MEDS: TOPIRAMATE 100 MG TAB PO SCH (08:54)
[2025-03-29] MEDS: NIFEdipine 30 MG XL TAB PO SCH (08:54)
[2025-03-29] MEDS: MONTELUKAST 10 MG TAB PO SCH (08:55)
[2025-03-29] MEDS: LORATADINE 10 MG TAB PO SCH (08:55)
[2025-03-29] MEDS: PANTOPRAZOLE 40MG TAB PO SCH (09:00)
[2025-03-29] MEDS: DAPAGLIFLOZIN PROPANEDIOL 10 MG TABLET PO SCH (09:00)
[2025-03-29] MEDS ORDERED: PRED10TA2 PO (11:42)
[2025-03-29] MEDS ORDERED: DOXY100C3 PO (11:42)
[2025-03-29] MEDS ORDERED: CEFD1CAP9 PO (11:42)
[2025-03-29] MEDS: ONDANSETRON 4MG ORAL DISINTEGRATING TAB SL PRN (11:50)
[2025-03-29] MEDS: CALCIUM CARBONATE 500 MG CHEW U/D PO PRN (11:50)
[2025-03-29 12:00] VITALS: BP 148/93; TEMP 97; O2SAT 100
== END 2025-03-29 13:17 | disposition home or self-care (01) | DRG 871 ==
LOC: EDBD 10:11 → M ED 10:11 → M ED INP 16:21 → M MSPAV 17:24
PROVIDERS: ADMIT Internal Medicine Nephrology; ATTEND Internal Medicine Nephrology
DX: A41.9 Sepsis, unspecified organism (principal); J18.9 Pneumonia, unspecified organism; J44.0 Chronic obstructive pulmonary disease with (acute) lower respiratory infection; I50.32 Chronic diastolic (congestive) heart failure; J44.1 Chronic obstructive pulmonary disease with (acute) exacerbation; M32.9 Systemic lupus erythematosus, unspecified; J84.89 Other specified interstitial pulmonary diseases; E66.9 Obesity, unspecified; G47.33 Obstructive sleep apnea (adult) (pediatric); E11.9 Type 2 diabetes mellitus without complications; I11.0 Hypertensive heart disease with heart failure; I27.20 Pulmonary hypertension, unspecified; Z68.39 Body mass index [BMI] 39.0-39.9, adult; E78.00 Pure hypercholesterolemia, unspecified; K21.9 Gastro-esophageal reflux disease without esophagitis; M54.9 Dorsalgia, unspecified; G89.29 Other chronic pain; Z90.79 Acquired absence of other genital organ(s); Z87.891 Personal history of nicotine dependence; F32.A Depression, unspecified; G47.00 Insomnia, unspecified; Z79.4 Long term (current) use of insulin; Z79.84 Long term (current) use of oral hypoglycemic drugs; Z79.891 Long term (current) use of opiate analgesic; Z79.899 Other long term (current) drug therapy; Z88.0 Allergy status to penicillin; Z88.2 Allergy status to sulfonamides; Z88.5 Allergy status to narcotic agent; Z88.6 Allergy status to analgesic agent; Z91.040 Latex allergy status; Z91.048 Other nonmedicinal substance allergy status